=== PATIENT | female | born 1985 | race Caucasian/White ===

== ENCOUNTER 2017-04-23 09:53 | Emergency (ER) | payer OTHER ==
[2017-04-23 10:10] VITALS: BP 114/78; PULSE 79; RESP 18; TEMP 98; O2SAT 99
--- NOTE | 2017-04-23 11:55 | C.PDOC ---
History Of Present Illness 31 yr old female presents to the ER stating a hand held scanner fell on top of her head yesterday around 5pm. Patient reports of a mild headache. Denies LOC, vision changes, nausea, vomiting, neck pain, dizziness, weakness or numbness. - HPI Time Seen by Provider: 04/23/17 10:25 Chief Complaint (Nursing): Trauma History Per: Patient History/Exam Limitations: no limitations Onset/Duration Of Symptoms: Days (1) Past Medical History Reviewed: Historical Data, Nursing Documentation, Vital Signs Vital Signs: Last Vital Signs Temp 98 F 04/23/17 10:09 Pulse 79 04/23/17 10:09 Resp 18 04/23/17 10:09 BP 114/78 04/23/17 10:09 Pulse Ox 99 04/23/17 11:56 Family History: States: No Known Family Hx - Social History Hx Tobacco Use: No Hx Alcohol Use: Yes Hx Substance Use: No - Immunization History Hx Tetanus Toxoid Vaccination: No Hx Influenza Vaccination: No Hx Pneumococcal Vaccination: No Review Of Systems Except As Marked, All Systems Reviewed And Found Negative. Eyes: Negative for: Vision Change Gastrointestinal: Negative for: Nausea, Vomiting Musculoskeletal: Negative for: Neck Pain Neurological: Positive for: Headache (Mild headache ). Negative for: Weakness, Numbness, Dizziness Physical Exam - Physical Exam Appears: Well, Non-toxic, No Acute Distress Skin: Warm, Dry, No Rash Head: Atraumatic, Normacephalic, No Swelling, No Abrasion, No Laceration Eye(s): bilateral: Normal Inspection, PERRL, EOMI Neck: Normal, Normal ROM, Supple Chest: Symmetrical, No Tenderness Cardiovascular: Rhythm Regular, No Murmur Respiratory: Normal Breath Sounds, No Rales, No Rhonchi, No Stridor, No Wheezing Extremity: Normal ROM, No Swelling Neurological/Psych: Oriented x3, Normal Speech, Normal Motor ED Course And Treatment O2 Sat by Pulse Oximetry: 99 Disposition - Disposition Referrals: [facility] [Outside] [facility] [Outside] Disposition: HOME/ ROUTINE Disposition Time: 10:15 Condition: GOOD Additional Instructions: Thank you for letting us take care of you today. Your provider was Dr. Centeno. You were treated for a head contusion. The emergency medical care you received today was directed at your acute symptoms. If you were prescribed any medication, please fill it and take as directed. It may take several days for your symptoms to resolve. Return to the Emergency Department if your symptoms worsen, do not improve, or if you have any other problems. Please contact your doctor or call one of the physicians/clinics you have been referred to that are listed on the Patient Visit Information form that is included in your discharge packet. Bring any paperwork you were given at discharge with you along with any medications you are taking to your follow up visit. Our treatment cannot replace ongoing medical care by a primary care provider (PCP) outside of the emergency department. Thank you for allowing the [facility] [email or web address] team to be part of your care today. Follow up with your doctor in 3-4 days. Return to the emergency room if you have any concerns or change in condition. Instructions: Head Injury (ED) Forms: Work Excuse - Clinical Impression Clinical Impression: Head contusion - Scribe Statement The provider has reviewed the documentation as recorded by the Chipibleticia Wang Provider Attestation: All medical record entries made by the hCipibleticia were at my direction and personally dictated by me. I have reviewed the chart and agree that the record accurately reflects my personal performance of the history, physical exam, medical decision making, and the department course for this patient. I have also personally directed, reviewed, and agree with the discharge instructions and disposition.
== END 2017-04-23 10:52 | disposition home or self-care (01) ==
LOC: C.ER 09:53
DX: S00.93XA Contusion of unspecified part of head, initial encounter (principal); W22.8XXA Striking against or struck by other objects, initial encounter

== ENCOUNTER 2017-04-28 09:32 | Emergency (ER) | payer OTHER ==
[2017-04-28 09:38] VITALS: BMI 22.3
[2017-04-28 09:41] VITALS: O2SAT 100
[2017-04-28 10:23] LABS: BASO % 0.6 % (0.0-2.0); EOS % 0.6 % (0.0-4.0); HEMATOCRIT 42.5 % (34.0-47.0); LYMPH # 2.6 K/uL (1.0-4.3); LYMPH % 39.6 % (20.0-40.0); MEAN CELL VOLUME 88.4 fL (81.0-99.0); MEAN CORPUSCULAR HEMOGLOBIN 29.1 pg (27.0-31.0); MEAN CORPUSCULAR HGB CONC 32.9 g/dL (33.0-37.0); MEAN PLATELET VOLUME 9.3 fL (7.2-11.7); MONO # 0.4 K/uL (0.0-0.8); MONO % 6.3 % (0.0-10.0); NRBC % 0.1 % (0.0-2.0); RED CELL DISTRIBUTION WIDTH 12.6 % (11.5-14.5); WHITE BLOOD COUNT 6.6 K/uL (4.8-10.8)
[2017-04-28 10:30] LABS: CHLORIDE 103 mmol/L (98-107); SODIUM 137 mmol/L (132-148)
[2017-04-28 10:31] LABS: RBC URINE < 1 /hpf (0-3); URINE BILIRUBIN NEGATIVE (NEGATIVE); URINE BLOOD 1+ (NEGATIVE); URINE COLOR Yellow (YELLOW); URINE GLUCOSE (UA) NORMAL (Normal); URINE KETONE NEGATIVE (NEGATIVE); URINE LEUKOCYTE ESTERASE TRACE Leu/uL (Negative); URINE PROTEIN NEGATIVE (NEGATIVE); URINE UROBILINOGEN NORMAL mg/dL (0.2-1.0); WBC URINE 2 /hpf (0-5)
[2017-04-28 10:32] LABS: GFR AFRICAN-AMERICAN > 60
[2017-04-28 10:33] LABS: BLOOD UREA NITROGEN 13 mg/dL (7-17); CALCIUM 9.1 mg/dl (8.6-10.4); CARBON DIOXIDE 23 mmol/L (22-30); GLUCOSE,RANDOM 95 mg/dL (65-105)
--- NOTE | 2017-04-28 12:08 | CT ---
PROCEDURE: CT HEAD WITHOUT CONTRAST. HISTORY: r/o fx and ICH COMPARISON: 01/13/2013 TECHNIQUE: Axial computed tomography images were obtained through the head/brain without intravenous contrast. Radiation dose: Total exam DLP = 91.84 mGy-cm. This CT exam was performed using one or more of the following dose reduction techniques: Automated exposure control, adjustment of the mA and/or kV according to patient size, and/or use of iterative reconstruction technique. FINDINGS: HEMORRHAGE: No intracranial hemorrhage. BRAIN: No mass effect or edema. No atrophy or chronic microvascular ischemic changes. VENTRICLES: Unremarkable. No hydrocephalus. CALVARIUM: Unremarkable. PARANASAL SINUSES: Unremarkable as visualized. No significant inflammatory changes. MASTOID AIR CELLS: Unremarkable as visualized. No inflammatory changes. OTHER FINDINGS: None. IMPRESSION: No intracranial hemorrhage. Unremarkable CT examination of the head.
--- NOTE | 2017-04-28 12:48 | C.PDOC ---
History Of Present Illness 32-year-old female, presents to the emergency department with complaints of a persistent headache x5 days. Patient states that six days ago, a hand held scanner fell onto the back of her head at work. Patient denies visual/speech changes, nausea/vomiting, fevers, chills, chest pain, numbness/weakness, shortness of breath, associated symptoms. No other complaints at this time. Chief Complaint (Nursing): Headache History Per: Patient History/Exam Limitations: no limitations Onset/Duration Of Symptoms: Days Current Symptoms Are (Timing): Still Present Severity: Moderate Past Medical History Reviewed: Historical Data, Nursing Documentation, Vital Signs Vital Signs: Last Vital Signs Temp 97.9 F 04/28/17 12:45 Pulse 96 H 04/28/17 12:45 Resp 16 04/28/17 12:45 BP 116/78 04/28/17 12:45 Pulse Ox 100 04/28/17 12:51 - Medical History PMH: Hypercholesterolemia Family History: States: No Known Family Hx - Social History Hx Tobacco Use: No Hx Alcohol Use: Yes Hx Substance Use: No - Immunization History Hx Tetanus Toxoid Vaccination: No Hx Influenza Vaccination: No Hx Pneumococcal Vaccination: No Review Of Systems Except As Marked, All Systems Reviewed And Found Negative. Constitutional: Negative for: Fever, Chills Eyes: Negative for: Vision Change Cardiovascular: Negative for: Chest Pain Gastrointestinal: Negative for: Vomiting Musculoskeletal: Negative for: Neck Pain, Back Pain Neurological: Positive for: Headache. Negative for: Weakness, Numbness, Change in Speech, Dizziness Physical Exam - Physical Exam Appears: Non-toxic, No Acute Distress Skin: Warm, Dry, No Rash Head: Atraumatic, Normacephalic Eye(s): bilateral: Normal Inspection, PERRL, EOMI Nose: Normal Oral Mucosa: Moist Lips: Normal Appearing Neck: Normal ROM Cardiovascular: Rhythm Regular Respiratory: Normal Breath Sounds, No Accessory Muscle Use Extremity: Normal ROM Neurological/Psych: Oriented x3, Normal Speech, Normal Cognition, Normal Cranial Nerves, Normal Motor, Normal Sensation, Normal Reflexes, Other (No focal deficits.) ED Course And Treatment - Laboratory Results Result Diagrams: 04/28/17 10:15 04/28/17 10:19 O2 Sat by Pulse Oximetry: 100 - CT Scan/US CT HEAD Other Rad Studies (CT/US): Read By Radiologist, Radiology Report Reviewed CT/US Interpretation: Accession No. : [id number]. Patient Name / ID : JON SAVAGE / [id number]. Exam Date : 04/28/2017 11:50:42 ( Approved ). Study Comment : Sex / Age : F / 32Y. Creator : Adria Morrow MD. Dictator : Adria Morrow MD. Systems Software Developer : Coin Purse Framer : Adria Morrow MD. Approver2 : Report Date : 04/28/2017 12:06:27. My Comment : . PROCEDURE: CT HEAD WITHOUT CONTRAST. HISTORY: r/o fx and ICH. COMPARISON: 01/13/2013. TECHNIQUE : Axial computed tomography images were obtained through the head/brain without intravenous contrast. Radiation dose: Total exam DLP = 91.84 mGy-cm. This CT exam was performed using one or more of the following dose reduction techniques: Automated exposure control, adjustment of the mA and/or kV according to patient size, and/or use of iterative reconstruction technique. FINDINGS: HEMORRHAGE: No intracranial hemorrhage. BRAIN: No mass effect or edema. No atrophy or chronic microvascular ischemic changes. VENTRICLES: Unremarkable. No hydrocephalus. CALVARIUM: Unremarkable. PARANASAL SINUSES: Unremarkable as visualized. No significant inflammatory changes. MASTOID AIR CELLS: Unremarkable as visualized. No inflammatory changes. OTHER FINDINGS: None. IMPRESSION: No intracranial hemorrhage. Unremarkable CT examination of the head. Progress Note: PRIOR VISITS. notes and records from previous visits were reviewed. Patient evaluated in ED for same complaint on 04/23. Patient had a head CT that did not reveal any acute findings. Disposition - Disposition Referrals: Clinic,Med Surg [Primary Care Provider] - Disposition: HOME/ ROUTINE Disposition Time: 12:00 Condition: GOOD Additional Instructions: Thank you for letting us take care of you today. Your provider was Dr. Centeno. The emergency medical care you received today was directed at your acute symptoms. If you were prescribed any medication, please fill it and take as directed. It may take several days for your symptoms to resolve. Return to the Emergency Department if your symptoms worsen, do not improve, or if you have any other problems. Please contact your doctor or call one of the physicians/clinics you have been referred to that are listed on the Patient Visit Information form that is included in your discharge packet. Bring any paperwork you were given at discharge with you along with any medications you are taking to your follow up visit. Our treatment cannot replace ongoing medical care by a primary care provider (PCP) outside of the emergency department. Thank you for allowing the [employer] team to be part of your care today. Follow up with your doctor in 2-3 days for re-evaluation. Instructions: Head Injury (ED), Acute Headache (ED) Forms: Work Excuse - Clinical Impression Clinical Impression: Head contusion - Scribe Statement The provider has reviewed the documentation as recorded by the Scribe Jerome Whitfield All medical record entries made by the Chipibleticia were at my direction and personally dictated by me. I have reviewed the chart and agree that the record accurately reflects my personal performance of the history, physical exam, medical decision making, and the department course for this patient. I have also personally directed, reviewed, and agree with the discharge instructions and disposition.
[2017-04-28 12:58] VITALS: BP 116/78; PULSE 96; RESP 16; TEMP 97.9
== END 2017-04-28 12:59 | disposition home or self-care (01) ==
LOC: SUPCPDRO 09:32 → C.ER 09:32
DX: S00.93XA Contusion of unspecified part of head, initial encounter (principal); W22.8XXA Striking against or struck by other objects, initial encounter; Y93.89 Activity, other specified; Y92.89 Other specified places as the place of occurrence of the external cause; Y99.8 Other external cause status

== ENCOUNTER 2018-07-19 10:55 | Emergency (ER) | payer OTHER ==
[2018-07-19 10:55] VITALS: BMI 22.3
[2018-07-19 11:06] VITALS: BP 120/83; PULSE 85; TEMP 98.5; O2SAT 97
--- NOTE | 2018-07-19 11:52 | C.PDOC ---
History Of Present Illness 33 yo female c/o right upper back pain that started 5 days ago. 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 Notes that she has been taking Advil without significant relief. Pain is aggravated by movement of the right arm or turning of the neck. Denies SOB, chest pain, fever, change in sensation, neck pain or trauma. Time Seen by Provider: 07/19/18 11:37 Chief Complaint (Nursing): Back Pain History Per: Patient History/Exam Limitations: no limitations Onset/Duration Of Symptoms: Days, Waxing/Waning Current Symptoms Are (Timing): Still Present Quality Of Discomfort: "Pain" Past Medical History Vital Signs: Last Vital Signs Temp 98.5 F 07/19/18 11:05 Pulse 85 07/19/18 11:05 Resp 20 07/19/18 11:05 BP 120/83 07/19/18 11:05 Pulse Ox 97 07/19/18 11:52 - Medical History PMH: Hypercholesterolemia Family History: States: Unknown Family Hx - Social History Hx Tobacco Use: No Hx Alcohol Use: Yes Hx Substance Use: No - Immunization History Hx Tetanus Toxoid Vaccination: Yes Hx Influenza Vaccination: No Hx Pneumococcal Vaccination: No Review Of Systems Except As Marked, All Systems Reviewed And Found Negative. Musculoskeletal: Positive for: Back Pain Physical Exam - Physical Exam Appears: Well, Non-toxic, No Acute Distress Skin: Normal Color, Warm, Dry Head: Atraumatic, Normacephalic Eye(s): bilateral: Normal Inspection, EOMI Nose: Normal Oral Mucosa: Moist Neck: Normal ROM (FROM but pain aggravated with rotation to the ipcilateral side ), No Midline Cervical Tenderness, Paracervical Tenderness ((+) right trapezius tenderness and spasm), No Step Off Deformity, Supple Chest: Symmetrical Cardiovascular: Rhythm Regular Respiratory: Normal Breath Sounds Back: Normal Inspection Extremity: Normal ROM, Capillary Refill (<2 sec) Neurological/Psych: Oriented x3, Normal Motor (5/5 against resistance), Normal Sensation ED Course And Treatment O2 Sat by Pulse Oximetry: 97 Progress Note: Offered medication here . Pt notes she is driving and requesting prescriptions. Instructed to follow up with the PMD in 1-2 days. Return precautions given. Disposition - Disposition Disposition: HOME/ ROUTINE Disposition Time: 11:50 Condition: STABLE Additional Instructions: Follow up with your doctor in 1-2 days. Return to ER if symptoms persist or worsen. Prescriptions: Cyclobenzaprine [Flexeril] 5 mg PO TID PRN #15 tab PRN Reason: Muscle Spasm Naproxen [Naprosyn] 1 tab PO BID PRN #20 tab PRN Reason: Pain Instructions: Muscle Spasms (DC) Forms: [employer] (Chinese) - Clinical Impression Clinical Impression: Acute torticollis
[2018-07-19 12:22] VITALS: RESP 18
== END 2018-07-19 12:22 | disposition home or self-care (01) ==
LOC: C.ER 10:55
DX: M43.6 Torticollis (principal)

== ENCOUNTER 2018-08-06 13:04 | Emergency (ER) | payer OTHER ==
[2018-08-06 13:10] VITALS: BMI 23.8
[2018-08-06 13:13] VITALS: BP 134/88; PULSE 74; RESP 18; TEMP 98.6; O2SAT 99
--- NOTE | 2018-08-06 13:43 | C.PDOC ---
History Of Present Illness 33 yo female come in for evaluation of pruritic rash gradually developed over chest, B/L arms since this AM. Pt reports, " took Tramadol for my right shoulder pain for 1st time last night and had amaroon 1sttime too". Otherwise, pt denies recent illness, fever, chills headache, dizziness, throat tightness or swelling, CP, cough, SOB, dyspnea, wheezing,m abd. pain, N/V/D, denies any other active complaints. Ambulate to ED for evaluation, not in any apparent distress. Time Seen by Provider: 08/06/18 13:21 Chief Complaint (Nursing): Abnormal Skin Integrity History Per: Patient Onset/Duration Of Symptoms: Gradual Past Medical History Reviewed: Historical Data, Nursing Documentation, Vital Signs Vital Signs: Last Vital Signs Temp 98.6 F 08/06/18 13:11 Pulse 74 08/06/18 13:11 Resp 18 08/06/18 13:11 BP 134/88 08/06/18 13:11 Pulse Ox 99 08/06/18 13:11 - Medical History PMH: Hypercholesterolemia Family History: States: Unknown Family Hx - Social History Hx Tobacco Use: No Hx Alcohol Use: Yes Hx Substance Use: No - Immunization History Hx Tetanus Toxoid Vaccination: No Hx Influenza Vaccination: No Hx Pneumococcal Vaccination: No Review Of Systems Except As Marked, All Systems Reviewed And Found Negative. Constitutional: Negative for: Fever, Chills ENT: Negative for: Ear Discharge, Nose Discharge, Mouth Swelling, Throat Pain, Throat Swelling Cardiovascular: Negative for: Chest Pain Respiratory: Negative for: Cough, Shortness of Breath Gastrointestinal: Negative for: Nausea, Vomiting, Abdominal Pain, Diarrhea Genitourinary: Negative for: Incontinence Musculoskeletal: Negative for: Neck Pain, Back Pain Skin: Positive for: Rash Neurological: Negative for: Weakness, Numbness, Headache, Dizziness Physical Exam - Physical Exam Appears: Well, Non-toxic, No Acute Distress Skin: Normal Color, Warm, Dry, Rash (scattered papeular erythematous rash to anterior aspect ches and B/L upper arms. No edema, no cellulitis.) Eye(s): bilateral: PERRL Nose: No Flaring, No Discharge Oral Mucosa: Moist, No Drooling Tongue: No Swelling Lips: No Swelling Throat: No Erythema, No Drooling Neck: Supple Cardiovascular: Rhythm Regular, No Murmur Respiratory: No Decreased Breath Sounds, No Accessory Muscle Use, No Stridor, No Wheezing Gastrointestinal/Abdominal: Soft Back: No CVA Tenderness Extremity: Normal ROM, No Deformity, No Swelling Neurological/Psych: Oriented x3, Normal Speech ED Course And Treatment O2 Sat by Pulse Oximetry: 99 Pulse Ox Interpretation: Normal Progress Note: On re-eval, pt is afebrile,hemodynamicaly stable. NOn-toxic. [place] Po well in ED. PulseOx 99% RA. ENT: no acute findings, uvula midline , no edema. Neck: Supple, (-) JVD, (-) carotid bruits B/L. Lungs: CTA B/L, BS equal B/L. Neurologicaly intact. Pt has clinical findings c/w rash r/o allergy to medication. Pt advised. ref. to f/u with PMD, electronic maintenance supervisor in 2-3 days for re-eval. return to ED if any worsening or new changes. Disposition Counseled Patient/Family Regarding: Diagnosis, Need For Followup, Rx Given - Disposition Referrals: [facility] [Outside] Disposition: HOME/ ROUTINE Disposition Time: 13:45 Condition: STABLE Additional Instructions: AVOID TRAMADOL AND FOOD THAT LIKELY CAUSE ALLERGIC REACTION TAKE MEDICATION PRESCRIBED FOLLOW UP WITH PMD, ACUTE CARE ASSISTANT IN 2-3 DAYS FOR RE-EVALUATION. RETURN TO ED IN ANY WORSENING OR NEW CHANGES. Prescriptions: DiphenhydrAMINE [Benadryl] 25 mg PO BID #10 cap Famotidine [Pepcid] 20 mg PO BID #10 tab Prednisone [Deltasone] 20 mg PO DAILY #3 tablet Instructions: Drug Allergy - Clinical Impression Clinical Impression: Allergy to pain medication
== END 2018-08-06 13:58 | disposition home or self-care (01) ==
LOC: C.ER 13:04
DX: L25.8 Unspecified contact dermatitis due to other agents (principal); T40.4X5A Adverse effect of other synthetic narcotics, initial encounter; E78.00 Pure hypercholesterolemia, unspecified

== ENCOUNTER 2018-10-11 11:19 | Emergency (ER) | payer OTHER ==
[2018-10-11 11:19] VITALS: BMI 23.8
[2018-10-11 11:37] VITALS: BP 123/84; PULSE 68; TEMP 98.4; O2SAT 99
--- NOTE | 2018-10-11 12:12 | C.PDOC ---
History Of Present Illness 33 y/o female c/o of left side ear/jaw pain x 4-5 days. Denies fever, no sore throat, change in hearing, ear discharge, and any other associated symptoms. Time Seen by Provider: 10/11/18 12:01 Chief Complaint (Nursing): ENT Problem History Per: Patient History/Exam Limitations: None Onset/Duration Of Symptoms: Days (5) Current Symptoms Are (Timing): Still Present Quality (Ear): denies: Swelling, Discharge, Foreign Body Quality (Mouth/Throat): Tenderness (left tmj area) Symptoms Have Been: Continuous Severity: Mild Anticoagulant/Antiplatlet Use?: No Past Medical History Reviewed: Historical Data, Nursing Documentation, Vital Signs Vital Signs: Last Vital Signs Temp 98.4 F 10/11/18 11:36 Pulse 68 10/11/18 11:36 Resp 20 10/11/18 11:36 BP 123/84 10/11/18 11:36 Pulse Ox 99 10/11/18 11:36 - Medical History PMH: Hypercholesterolemia Other Surgeries: right shoulder surgery Family History: States: Unknown Family Hx - Social History Hx Tobacco Use: No Hx Alcohol Use: Yes Hx Substance Use: No - Immunization History Hx Tetanus Toxoid Vaccination: No Hx Influenza Vaccination: No Hx Pneumococcal Vaccination: No Review Of Systems Constitutional: Negative for: Fever, Chills ENT: Positive for: Ear Pain, Mouth Pain (left tmj). Negative for: Ear Discharge, Mouth Swelling, Throat Pain Musculoskeletal: Negative for: Neck Pain Skin: Negative for: Rash, Lesions Neurological: Negative for: Weakness, Numbness Physical Exam - Physical Exam Appears: Non-toxic, No Acute Distress Skin: Warm, Dry Head: Atraumatic, Normacephalic Eye(s): bilateral: Normal Inspection Ear(s): Bilateral: Normal (no mastoid ten) Nose: No Discharge Oral Mucosa: Moist Tongue: Normal Appearing Lips: Normal Appearing Teeth: Normal Dentition Gingiva: Normal Appearing Throat: No Erythema, No Exudate, Other (left tmj tender with palpation. from to tmj, no swelling or redness noted) Neck: Supple Neurological/Psych: Oriented x3, Normal Speech, Normal Cognition ED Course And Treatment O2 Sat by Pulse Oximetry: 99 (RA) Pulse Ox Interpretation: Normal Medical Decision Making Medical Decision Making: pt with left ear and left tmj pain- no sign infection in ear or throat. d/c home with f/u at dentist Disposition Counseled Patient/Family Regarding: Diagnosis, Need For Followup, Rx Given - Disposition Referrals: [facility] [Outside] Disposition: HOME/ ROUTINE Disposition Time: 12:20 Condition: GOOD Additional Instructions: Please take Tylenol or Motrin for pain. Follow up with dentist as [facility] as soon as possible. Cold compresses (over a cloth) to painul area several times a dayReturn to ER for any worse symptoms. Instructions: Temporomandibular Joint (TMJ) Disorders (DC) Forms: [employer] (Sinhala), General Discharge Instructions - Clinical Impression Clinical Impression: TMJ tenderness, left - PA / POST FRAMER / Resident Statement MD/DO has reviewed & agrees with the documentation as recorded. - Scribe Statement The provider has reviewed the documentation as recorded by the Scribe (Paula Colmenares) All medical record entries made by the Scribe were at my direction and personally dictated by me. I have reviewed the chart and agree that the record accurately reflects my personal performance of the history, physical exam, medical decision making, and the department course for this patient. I have also personally directed, reviewed, and agree with the discharge instructions and disposition.
[2018-10-11 12:29] VITALS: RESP 18
== END 2018-10-11 12:29 | disposition home or self-care (01) ==
LOC: C.ER 11:19
DX: M26.602 Left temporomandibular joint disorder, unspecified (principal)